=== PATIENT | male | born 1950 | race Caucasian/White ===

== ENCOUNTER 2024-08-21 14:08 | Emergency (ER) | payer MEDICARE, OTHER ==
[~2024-08-21] VITALS: Ht 180.3 cm; Wt 86.3 kg
[2024-08-21 14:23] VITALS: TEMP 98.4
[2024-08-21] MEDS: KETOROLAC TROMETHAMINE 60 MG/2 ML VIAL IM ONE (15:44)
[2024-08-21] MEDS: METHOCARBAMOL 500 MG TABLET PO ONE (15:44)
[2024-08-21] MEDS: LIDOCAINE 1% 10 ML VIAL SQ ONE (15:46)
[2024-08-21] MEDS ORDERED: IBUP-1492 PO (17:02)
[2024-08-21 17:15] VITALS: BP 138/80; PULSE 88; RESP 18; O2SAT 97
== END 2024-08-21 17:17 | disposition home or self-care (01) ==
LOC: EMS 14:12
DX: S01.81XA Laceration without foreign body of other part of head, initial encounter (principal); E11.9 Type 2 diabetes mellitus without complications; M54.2 Cervicalgia; W22.8XXA Striking against or struck by other objects, initial encounter; Y93.89 Activity, other specified; Y92.89 Other specified places as the place of occurrence of the external cause; Y99.8 Other external cause status
CPT/HCPCS: 99283; 12013; 96372; J1885; J3490

== ENCOUNTER 2024-08-26 12:06 | Emergency (ER) | payer MEDICARE, OTHER ==
[~2024-08-26] VITALS: Ht 177.8 cm; Wt 86.3 kg
[~2024-08-26 12:06] MED LIST: IBUP-1492 PO
[2024-08-26 12:10] VITALS: BP 113/73; PULSE 84; RESP 18; TEMP 97.5; O2SAT 96
[2024-08-26 12:31] LABS: GLUCOMETER DEV NAME(LOC) ERT.6; GLUCOSE,POINT OF CARE 146 MG/DL (70-110)
== END 2024-08-26 13:04 | disposition home or self-care (01) ==
LOC: EMS 12:09
DX: S01.81XD Laceration without foreign body of other part of head, subsequent encounter (principal); Z48.02 Encounter for removal of sutures; Z48.00 Encounter for change or removal of nonsurgical wound dressing; E11.9 Type 2 diabetes mellitus without complications; X58.XXXD Exposure to other specified factors, subsequent encounter
CPT/HCPCS: 82962; 99282